=== PATIENT | male | born 2000 | race African-American/Black ===

== ENCOUNTER 2024-11-18 14:06 | Emergency (ER) | payer OTHER, SELFPAY ==
[2024-11-18 14:17] VITALS: BP 124/68; PULSE 64; RESP 18; TEMP 36.3; O2SAT 100
[2024-11-18] MEDS: HYDROGEN PEROXIDE 3% SOLN(*SP) 473 ML BOTTLE 30 ML IRRIGATION (14:28)
--- NOTE | 2024-11-18 14:28 | ED.EAR ---
HPI - Ear Problem General Chief complaint: Ear Stated complaint: right ear feels clogged Time Seen by Provider: 11/18/24 14:20 Source: patient Mode of arrival: ambulatory Limitations: no limitations History of Present Illness HPI Narrative: Patient is a 24-year-old male patient presenting to the clinic today with complaints of right ear feeling clogged. He reports symptoms have been going on for 5 days. States he noticed some ringing in his ears. Denies any fevers, chills, body aches. No recent swimming. No drainage coming from the ears. Related Data Home Medications ?Medication ?Instructions ?Recorded ?Confirmed ?Last Taken ?Type No Home Medications 11/18/24 11/18/24 Unknown History Allergies Allergy/AdvReac Type Severity Reaction Status Date / Time No Known Allergies Allergy Verified 11/18/24 14:17 Review of Systems Review of Systems: Pertinent positives per HPI. Patient denies any fever, chills, rash, headache, visual changes, dizziness, cough, runny nose, sore throat, shortness of breath, chest pain, palpitations, nausea, vomiting, diarrhea, constipation, abdominal pain, or any urinary issues. PMFSH Comments At the time of my signature, I reviewed and agree with the nursing past medical, surgical, social, and family history. There is no relevant family history pertinent to the patient complaint. Exam Narrative: General: Well-developed, well nourished, in no apparent distress Head: Normocephalic, atraumatic Eyes: Pupils equally round and reactive to light bilaterally, EOM intact, sclera and conjunctive clear, no discharge, lids normal Ears: Bilateral ears canals impacted with cerumen, ear irrigation performed, TMs intact and congested, ear canals clear, no drainage, grossly hearing normal. Patient reports improvement of symptoms. Nose: Nares patent, no discharge, no inflammation, no sinus tenderness. Mouth: Oropharynx without lesions or masses, good dentition, MMM. Neck: Supple, trachea midline, no enlargement of anterior or posterior cervical nodes, no thyroid masses or goiter palpable. Cardio: Regular rate and rhythm, s1 and s2 normal, no murmur appreciated. Resp: Clear to auscultation bilaterally anteriorly and posteriorly, no rhonchi, rales, wheezing or rubs Course Course Emergency Course: Portions of this record may have been created with voice recognition software. Level of Care: Express Care Visit Vital Signs Vital signs: Vital Signs Temperature 36.3 C L 11/18/24 14:17 Pulse Rate 64 11/18/24 14:17 Respiratory Rate 18 11/18/24 14:17 Blood Pressure 124/68 11/18/24 14:17 Pulse Oximetry 100 11/18/24 14:17 Oxygen Delivery Room Air 11/18/24 14:17 Temperature 36.3 C L 11/18/24 14:17 Pulse Rate 64 11/18/24 14:17 Respiratory Rate 18 11/18/24 14:17 Blood Pressure 124/68 11/18/24 14:17 Pulse Oximetry 100 11/18/24 14:17 Oxygen Delivery Room Air 11/18/24 14:17 Vital signs reviewed Procedures Ear Wax Removal Both Ears: Ear Wax Removal Date: 11/18/24 Ear Wax Removal Time: 15:14 Results: Re-examined: cerumen removed completely TM Examination: other (TMs intact and congested) Ear Canal Exam: atraumatic Patient Tolerated Procedure: well and no complications Complications: no problems Technique: ear canal irrigated and ear canal curetted Additional Comments: Verbal consent obtained for ear irrigation. Risk and benefits explained and patient voiced understanding. Ear irrigation performed using an elephant ear and spray water bottle. Mixture of 1/2 peroxide 1/2 water used to irrigate ear canal. Cerumen impaction cleared and TM visualized without redness. Grossly hearing normal. Patient tolerated procedure well Medical Decision Making MDM Narrative Medical decision making narrative: At the time of visit patient is resting comfortably on the exam table. Patient appears to be nontoxic. Complaints of right ear feeling clogged. He reports symptoms have been going on for 5 days. States he noticed some ringing in his ears. Denies any fevers, chills, body aches. No recent swimming. No drainage coming from the ears. Has tried some [id number] ear drops. On exam patient has bilateral cerumen impaction. Ear irrigation was performed in the clinic successfully and TMs intact and congested. Plan: Cerumen impaction to bilat ears. Irrigation was performed successfully. No sign of infection. Supportive measures were discussed with the patient and they voiced understanding discharge instructions and agrees to treatment plan. Return precautions reviewed Differential Diagnosis Differential Diagnosis: Otitis media, otitis externa, eustachian tube dysfunction, cerumen impaction, upper respiratory infection, serous otitis. Vital Signs Vital Signs: Vital Signs Temperature 36.3 C L 11/18/24 14:17 Pulse Rate 64 11/18/24 14:17 Respiratory Rate 18 11/18/24 14:17 Blood Pressure 124/68 11/18/24 14:17 Pulse Oximetry 100 11/18/24 14:17 Oxygen Delivery Room Air 11/18/24 14:17 Temperature 36.3 C L 11/18/24 14:17 Pulse Rate 64 11/18/24 14:17 Respiratory Rate 18 11/18/24 14:17 Blood Pressure 124/68 11/18/24 14:17 Pulse Oximetry 100 11/18/24 14:17 Oxygen Delivery Room Air 11/18/24 14:17 Discharge Plan Discharge Clinical Impression: Impacted cerumen of both ears Patient Disposition: Home Condition: Stable Instructions: Antibiotic Form Additional Instructions: Ear irrigation was performed successfully in bilateral ears. Follow-up with your PCP as needed Patient Language: Bengali Prescriptions: No Action No Home Medications Follow-up/Referrals: PHYSICIAN,CERTIFIED PHYSICAL THERAPIST ASSISTANT [Primary Care Provider, Internal Medicine] Time of Disposition: 14:48 Quality NIHSS Nursing Documentation ED NIHSS nursing documentation: reviewed/agree
== END 2024-11-18 14:50 | disposition home or self-care (01) ==
PROVIDERS: Emergency Provider Nurse Practitioner Family
DX: H61.23 Impacted cerumen, bilateral (principal)
CPT/HCPCS: 69210; 99212; G0463